=== PATIENT | female | born 1985 | race Caucasian/White ===

== ENCOUNTER 2021-07-03 09:52 | Outpatient (CLI) | payer OTHER, SELFPAY ==
[2021-07-03 12:41] LABS: Basophils Absolute Auto 0.1 K/mm3 (0.0-0.1); Eosinophils Absolute Auto 0.1 K/mm3 (0-0.3); Eosinophils Percent Auto 1.2 % (0-4.4); Hematocrit 38.2 % (37.0-47.0); Hemoglobin 12.5 g/dL (12.0-15.0); Immature Granulocyte Absolute 0.04 K/mm3 (0.00-0.031); Immature Granulocyte Percent A 0.5 % (0-0.5); Lymphocytes Absolute Auto 2.62 K/mm3 (0.9-3.2); Lymphocytes Percent Auto 31.8 % (18.3-44.2); Mean Corpuscular HGB Conc 32.7 g/dl (32-36); Mean Corpuscular Hemoglobin 28.9 pg (26-34); Mean Corpuscular Volume 88.4 fl (80-100); Mean Platelet Volume 9.5 fl (7.4-10.4); Monocytes Absolute Auto 0.5 K/mm3 (0.1-0.6); Monocytes Percent Auto 6.6 % (2.6-8.5); Neutrophils Absolute Auto 4.9 K/mm3 (1.3-6.7); Neutrophils Percent Auto 58.9 % (45.5-73.1); Platelet Count Result 360 k/mm3 (150-375); Red Blood Count 4.32 M/mm3 (4.2-5.4); White Blood Count 8.2 K/mm3 (4.5-10.0)
[2021-07-03 12:48] LABS: Alanine Aminotransferase 14 U/L (4-35); Albumin Level 4.4 g/dL (3.5-5.1); Alkaline Phosphatase 86 U/L (38-126); Anion Gap 9 mmol/L (8-16); Aspartate Amino Transferase 35 U/L (14-36); Bilirubin,Total 0.5 mg/dL (0.2-1.3); Blood Urea Nitrogen 10 mg/dL (7-17); Calcium 9.7 mg/dL (8.4-10.2); Carbon Dioxide 28 mmol/L (22-30); Chloride 102 mmol/L (98-107); Cholesterol 200 mg/dL (0-200); Estimated Glomerular Filt Rate > 60; Glucose 94 mg/dL (65-110); HDL Direct 44 mg/dL; Potassium 4.2 mmol/L (3.4-5.0); Sodium 139 mmol/L (137-145); Triglycerides 103 mg/dL (<150)
[2021-07-03 12:59] LABS: LDL Cholesterol Direct 124 mg/dL
[2021-07-03 13:05] LABS: Vitamin D 25 Hydroxy 21.8 ng/mL
== END 2021-07-03 09:53 | disposition home or self-care (01) ==
LOC: ANHWCLAB 09:56
PROVIDERS: Visit Provider Obstetrics & Gynecology
DX: F52.0 Hypoactive sexual desire disorder (principal)
CPT/HCPCS: 36415; 80053; 80061; 82306; 84443; 85025

== ENCOUNTER 2021-07-11 12:28 | Outpatient (CLI) | payer OTHER, SELFPAY ==
--- NOTE | ~2021-07-11 | US_ITS ---
EXAMINATION: US pelvic complete w TV EXAM DATE: 07/11/2021 13:03 INDICATION: R19.00 - Intra-abdominal and pelvic swelling, mass and mag... . TECHNIQUE: Pelvic transabdominal and transvaginal sonogram was performed. There are multiple graysca le and Doppler images available for interpretation. There is no prior study for comparison. FINDINGS: Uterus measures 9.0 x 4.8 x 4.5 cm, with a large fundal fibroid measuring 9 x 6 cm. Endome trial stripe measures 5 mm, within normal limits. There is no free pelvic fluid. Right adnexa: The ovary measures 2.1 x 1.9 x 1.9 cm and is morphologically normal. Ovarian vascular f low confirmed. Left adnexa: The ovary is not identified. There is no adnexal mass. IMPRESSION: 1. Large fibroid. Reviewed, dictated and finalized at location G. [employer] SALESPERSON IMPRESSION: 1. Large fibroid.
== END 2021-07-11 12:29 | disposition home or self-care (01) ==
LOC: ANHIMG 12:30
PROVIDERS: Visit Provider Obstetrics & Gynecology
DX: D25.9 Leiomyoma of uterus, unspecified (principal)
CPT/HCPCS: 76830; 76856

== ENCOUNTER 2021-08-17 08:28 | Outpatient (CLI) | payer OTHER, SELFPAY ==
--- NOTE | ~2021-08-17 | MR_ITS ---
EXAMINATION: MR pelvis wo/w con DATE: 08/17/2021 10:42 INDICATION: Benign neoplasm of connective and other soft tissue. TECHNIQUE: Magnetic resonance imaging (MRI) of the pelvis was performed without and with 16 mL MultiH ance intravenous contrast. Sequences included coronal and axial T2-weighted FS FSE, axial T1-weighted FS FSE, axial LAVA, coronal FS FIESTA, coronal LAVA-flex, axial T2-weighted FSE, axial dual-echo T1- weighted FSPGR, axial FS FIESTA, axial DWI, and small [id number] sagittal, coronal, and axial T2-w eighted FSE. Postcontrast sequences included coronal LAVA-flex and a time course of axial LAVA. COMPARISON: Pelvis ultrasound 07/11/2021 FINDINGS: The uterus is septate. The endometrial thickness is 9 mm. There is a 10.3 x 6.5 x 5.9 cm subserosal f ibroid of the right side of the uterine fundus. The right ovary is normal. There is a 2.7 cm dominant follicle in left ovary. There is physiologic fluid in the pelvis. There are no pathologically enlarg ed lymph nodes. IMPRESSION: 1. 10.3 cm subserosal fibroid of the right side of the uterine fundus. 2. Septate uterus. Reviewed, dictated and finalized at location [employer]. [employer]
[2021-08-17 09:51] LABS: Estimated Glomerular Filt Rate > 60
== END 2021-08-17 08:29 | disposition home or self-care (01) ==
LOC: ANHIMG 08:32
PROVIDERS: Visit Provider Obstetrics & Gynecology
DX: D25.9 Leiomyoma of uterus, unspecified (principal); Q51.28 Other and unspecified doubling of uterus
CPT/HCPCS: 72197; A9577

== ENCOUNTER 2022-01-10 08:46 | Emergency (ER) | payer OTHER, SELFPAY ==
--- NOTE | 2022-01-10 08:49 | ED.URI ---
HPI - URI/Sore Throat General Chief Complaint: Upper Respiratory Infection Stated Complaint: covid positive, wants to be tested for strep Time Seen by Provider: 01/10/22 08:49 Source: patient Mode of arrival: ambulatory Limitations: no limitations History of Present Illness HPI Narrative: Ms. Lackey is a 36-year-old female patient presenting to the clinic today with complaints of sore throat. She is positive for COVID but thinks she has strep. States that her symptoms started on Friday and she tested positive for COVID on Friday. Reports that her symptoms are low-grade fever, stuffy nose, congestion, as well as a sore throat. Reports that her sore throat is getting worse every day and she is having difficulty swallowing due to the pain. Related Data Allergies Allergy/AdvReac Type Severity Reaction Status Date / Time No Known Allergies Allergy Unverified 09/27/21 08:19 Review of Systems Review of Systems: Pertinent positives per HPI. Patient denies any fever, chills, rash, headache, visual changes, dizziness, shortness of breath, chest pain, palpitations, nausea, vomiting, diarrhea, constipation, abdominal pain, or any urinary issues. [facility] Past Medical History Medical History History of infertility Family History Family History Mother Hypertension Grandparent Family history of malignant neoplasm of breast, Onset Age: 45 Social History Social History Smoking status: Never smoker Alcohol intake: never Comments At the time of my signature, I reviewed and agree with the nursing past medical, surgical, social, and family history. There is no relevant family history pertinent to the patient complaint. Exam Narrative: General: Well-developed, obese, in no apparent distress Head: Normocephalic, atraumatic Eyes: Pupils equally round and reactive to light bilaterally, EOM intact, sclera and conjunctive clear, no discharge, lids normal Ears: TMs intact and dull, ear canals clear, no drainage, grossly hearing normal. Nose: Nares patent, clear nasal discharge, moderate inflammation, no sinus tenderness. Mouth: Oropharynx without lesions or masses, good dentition, MMM. Postnasal drip oropharynx mildly red Neck: Supple, trachea midline, no enlargement of anterior or posterior cervical nodes, no thyroid masses or goiter palpable. Cardio: Regular rate and rhythm, s1 and s2 normal, no murmur appreciated. Resp: Clear to auscultation bilaterally anteriorly and posteriorly, no rhonchi, rales, wheezing or rubs Course Course Emergency Course: Portions of this record may have been created with voice recognition software. Level of Care: Express Care Visit Vital Signs Vital signs: Vital signs reviewed MDM - URI/Sore Throat MDM Narrative Medical decision making narrative: At the time of visit patient is resting comfortably on the exam table. Strep screen negative in the clinic. I suspect that the patient has viral pharyngitis due to COVID. I will send her in a prescription for some viscous lidocaine and also put her on some antivirals as she is technically on day 4 of symptoms. Since today just started. Discharge Plan Discharge Clinical Impression: COVID-19, Acute pharyngitis Patient Disposition: Home, Self-Care Condition: Stable Instructions: Antibiotic Form, Pharyngitis (ED), How To Wash Your Hands (ED), Droplet Precautions (ED), COVID-19 (Coronavirus Disease 2019) (ED), Face Coverings (Masks) and COVID-19 (ED), How to Recover from COVID-19 at Home (ED) Additional Instructions: Take prescription medications only as prescribed- paxlovid and viscous lidocaine Increase fluids and stay well hydrated Tylenol/motrin for pain/fever Flonase and OTC antihistamines as directed Vicks vapor rub to open sinuses Sinus rins
[2022-01-10 08:55] VITALS: BP 131/95; PULSE 115; RESP 20; TEMP 37.6; O2SAT 100
== END 2022-01-10 09:30 | disposition home or self-care (01) ==
PROVIDERS: Emergency Provider Nurse Practitioner Family
DX: U07.1 COVID-19 (principal)
CPT/HCPCS: 87081; 87880; 99213; G0463

== ENCOUNTER 2022-08-30 08:13 | Outpatient (CLI) | payer BC, SELFPAY ==
[2022-09-05 04:48] LABS: FSH 17.4 mIU/mL (***); Prolactin 8.2 ng/mL (***)
[2022-09-08 22:16] LABS: Estradiol, Ultrasensitive 26 pg/mL
== END 2022-08-30 08:14 | disposition home or self-care (01) ==
LOC: ANHGOSHLAB 08:17
DX: R79.89 Other specified abnormal findings of blood chemistry (principal); Z31.41 Encounter for fertility testing
CPT/HCPCS: 36415; 82670; 83001; 84146

== ENCOUNTER 2022-09-24 10:46 | Outpatient (CLI) | payer BC, SELFPAY ==
[2022-09-28 05:41] LABS: FSH 17.5 mIU/mL (***)
[2022-09-30 23:11] LABS: Estriol <0.10 ng/mL
== END 2022-09-24 10:47 | disposition home or self-care (01) ==
DX: Z31.41 Encounter for fertility testing (principal)
CPT/HCPCS: 36415; 82677; 83001

== ENCOUNTER 2023-02-10 10:55 | Outpatient (CLI) | payer BC, SELFPAY ==
[2023-02-10 11:55] LABS: Alanine Aminotransferase 26 U/L (6-35); Albumin Level 4.3 g/dL (3.5-5.1); Alkaline Phosphatase 66 U/L (38-126); Anion Gap 6 mmol/L (8-16); Aspartate Amino Transferase 31 U/L (14-36); Bilirubin,Total 0.3 mg/dL (0.2-1.3); Blood Urea Nitrogen 11 mg/dL (7-17); Calcium 9.2 mg/dL (8.4-10.2); Carbon Dioxide 25 mmol/L (22-30); Chloride 103 mmol/L (98-107); Estimated Glomerular Filt Rate > 60; Glucose 92 mg/dL (65-110); Potassium 3.7 mmol/L (3.4-5.0); Sodium 134 mmol/L (137-145)
== END 2023-02-10 10:56 | disposition home or self-care (01) ==
LOC: ANHGOSHLAB 10:56
PROVIDERS: PCP Family Medicine; Visit Provider Physician Assistant Medical
DX: E78.2 Mixed hyperlipidemia (principal)
CPT/HCPCS: 36415; 80053

== ENCOUNTER 2024-02-02 10:06 | Outpatient (CLI) | payer BC, SELFPAY ==
[2024-02-02 14:43] LABS: Basophils Absolute Auto 0.1 K/mm3 (0.0-0.1); Basophils Percent Auto 0.8 % (0.2-1.2); Eosinophils Absolute Auto 0.1 K/mm3 (0-0.3); Eosinophils Percent Auto 1.7 % (0-4.4); Hemoglobin 11.9 g/dL (12.0-15.0); Immature Granulocyte Absolute 0.02 K/mm3 (0.00-0.031); Immature Granulocyte Percent A 0.3 % (0-0.5); Lymphocytes Absolute Auto 2.52 K/mm3 (0.9-3.2); Lymphocytes Percent Auto 41.7 % (18.3-44.2); Mean Corpuscular HGB Conc 31.3 g/dl (32-36); Mean Corpuscular Volume 86.2 fl (80-100); Monocytes Absolute Auto 0.3 K/mm3 (0.1-0.6); Monocytes Percent Auto 5.5 % (2.6-8.5); Platelet Count Result 411 k/mm3 (150-375); Red Blood Count 4.41 M/mm3 (4.2-5.4); Red Cell Distribution Width 14.1 % (11.5-14.5); White Blood Count 6.1 K/mm3 (4.5-10.0)
[2024-02-02 16:21] LABS: Alanine Aminotransferase 14 U/L (6-35); Albumin Level 4.5 g/dL (3.5-5.1); Alkaline Phosphatase 90 U/L (38-126); Anion Gap 11 mmol/L (4-12); Aspartate Amino Transferase 28 U/L (14-36); Bilirubin,Total 0.4 mg/dL (0.2-1.3); Blood Urea Nitrogen 11 mg/dL (7-17); Calcium 9.8 mg/dL (8.4-10.2); Carbon Dioxide 25 mmol/L (22-30); Chloride 102 mmol/L (98-107); Estimated Glomerular Filt Rate > 60; Glucose 75 mg/dL (65-110); Sodium 138 mmol/L (137-145)
[2024-02-02 16:50] LABS: Cholesterol 193 mg/dL (0-200); HDL Direct 39 mg/dL; Triglycerides 117 mg/dL (<150)
[2024-02-02 17:01] LABS: LDL Cholesterol Direct 114 mg/dL
== END 2024-02-02 10:07 | disposition home or self-care (01) ==
LOC: ANHGOSHLAB 10:08
PROVIDERS: Physician Assistant Medical; PCP Family Medicine; Visit Provider Student in an Organized Health Care Education/Training Program
DX: Z00.00 Encounter for general adult medical examination without abnormal findings (principal); E78.2 Mixed hyperlipidemia; R53.83 Other fatigue
CPT/HCPCS: 36415; 80053; 80061; 85025

== ENCOUNTER 2024-05-10 14:17 | Emergency (ER) | payer OTHER, BC, SELFPAY ==
[2024-05-10 14:30] VITALS: BP 115/81; PULSE 100; RESP 20; TEMP 36.7; O2SAT 99
--- NOTE | 2024-05-10 15:33 | ED_ITS ---
HPI - URI/Sore Throat General Chief Complaint: Upper Respiratory Infection Stated Complaint: Congestion/Cough/Body Aches/Fever Time Seen by Provider: 05/10/24 15:25 Source: patient, RN notes reviewed and old records reviewed Mode of arrival: ambulatory Limitations: no limitations History of Present Illness HPI Narrative: 38 year old female who presents to [facility] care with complaints of cough for one week.and since yesterday she has experienced body aches, chills,ear pain, nasal drainage, with fever up to 102F. Patient reports that 5 month old daughter is ill with rhinovirus. Patient reports that she has been taking Ibuprofen and Zinc for her symptoms. MD elicited complaint: cough and other (body aches, chills, fever,and ear aches.) Onset (ago): day(s) (day 2 of body aches fever, chills and ear pain, one week cough) Severity: moderate Pain scale (0-10): 4 Able to tolerate fluids by mouth: Yes Treatments prior to arrival: ibuprofen and other (Zinc) Related Data Allergies Allergy/AdvReac Type Severity Reaction Status Date / Time No Known Allergies Allergy Verified 05/10/24 14:53 Review of Systems Review of Systems: CONSTITUTIONAL: Reports malaise, chills, sweats, or fever. EYES: Denies visual changes, redness, or discharge. ENT: Reports rhinorrhea, congestion, no sinus pain, bilateral otalgia and no sore throat. CARDIOVASCULAR: Denies chest pain, palpitations, or edema. RESPIRATORY: Reports cough.? Denies dyspnea. GASTROINTESTINAL: Denies abdominal pain, nausea, vomiting, diarrhea SKIN: Denies rash or itching. MUSCULOSKELETAL:Reports myalgia. NEUROLOGIC: Denies headache. All systems reviewed & are unremarkable except as noted in HPI and below PMFSH Past Medical History Medical History History of infertility Migraine headache Surgical History Surgical History S/P myomectomy Family History Family History Mother Hypertension Grandparent Family history of malignant neoplasm of breast, Onset Age: 45 Social History Social History (Reviewed 05/11/24 @ 14:56 by MICHELLE Grimes Smoking status: Never smoker Second hand tobacco smoke exposure: No Alcohol intake: never Substance use: never Substance use type: does not use Lack of Transportation: No Lack of Food: Never True Current Housing: I Have Housing Concerned About Future Housing: No Difficulty Paying Gas/Electric Bills: No Difficulty Paying for Meds: No Currently Unemployed: No Education: Trade/Vocational Certificate Difficulty w/ Childcare or Family Care: No Living arrangements: with family Occupation/Education: occupation 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 Gender identity (if verbalized by the patient): Female Sexual Orientation (if Verbalized by the Patient): Straight or Heterosexual Spiritual care concerns: No Agree to blood products: Yes Comments At time of signature, agree with nursing past medical, surgical, social and family history. There is no relevant family history pertinent to the presenting complaint Exam Narrative: GENERAL: Well-appearing, well-nourished, and in no acute distress. HEAD: Normocephalic EYES: PERRLA, conjunctivae clear ENT: Nares clear, turbinates edematous and erythematous, clear discharge. Mucous membranes moist. TM pearly tavera with dull light reflex bilaterally; no tragal tenderness. Oropharynx erythematous without lesions. Tonsils not enlarged and without exudate, no drooling, no hoarseness, no trismus, uvula midline. NECK: Supple. No lymphadenopathy CHEST: Clear to auscultation, breath sounds equal. No wheezing, rhonchi, rales, or stridor. No respiratory distress, speaks in full sentences.cough noted, SAO2 99% on room air HEART: Regular rate and rhythm. No murmur heard. SKIN: Warm, dry, no rash. NEURO: Alert and oriented x3. PSYCH: Normal mood and affect Course Course Emergency Course: Patient is aware of diagnosis, understands and agrees to treatment plan.? Anticipatory guidance given.? Patient agrees to follow-up as directed and is aware of reasons to seek care at the emergency department. Portions of this record may have been created with voice recognition software Level of Care: Express Care Visit Vital Signs Vital signs: Vital Signs Temperature 36.7 C 05/10/24 14:30 Pulse Rate 100 05/10/24 14:30 Respiratory Rate 20 05/10/24 14:30 Blood Pressure 115/81 05/10/24 14:30 Pulse Oximetry 99 05/10/24 14:30 Oxygen Delivery Room Air 05/10/24 14:30 Temperature 36.7 C 05/10/24 14:30 Pulse Rate 100 05/10/24 14:30 Respiratory Rate 20 05/10/24 14:30 Blood Pressure 115/81 05/10/24 14:30 Pulse Oximetry 99 05/10/24 14:30 Oxygen Delivery Room Air 05/10/24 14:30 Reviewed MDM - URI/Sore Throat MDM Narrative Medical decision making narrative: Differential diagnosis considered: Jason virus, strep pharyngitis, allergic rhinitis, upper respiratory tract infection, sinusitis, rhinosinusitis, nasopharyngitis. viral pharyngitis, otitis media, otitis externa, pneumonia, bronchitis, viral cough syndrome, viral syndrome, and influenza.? Exam findings show no acute concerns or changes; patient is non-toxic appearing and is in no distress.? Patient is appropriate for outpatient treatment and follow-up. Differential Diagnosis Differential diagnosis: Likely upper respiratory infection, otitis media, sinusitis, viral infection, influenza, pharyngitis and other (COVID) Medical Records Attestation: I reviewed the patient's medical records. Lab Data Attestation: I reviewed the patient's lab results. Lab results narrative: strep screen negative, culture sent, Influenza A negative, Influenza B negative, COVID antigen positive Labs: Lab Results 05/10/24 Range/Units 15:00 POC Influenza A Ag Negative (Negative) POC Influenza B Ag Negative (Negative) POC SARS CoV-2 Ag Positive (Negative) POC Grp A Strep Screen Negative (Negative) Critical Care Time Critical Care Time Critical Care Time: No Discharge Plan Discharge Clinical Impression: COVID-19 Patient Disposition: Home, Self-Care Condition: Stable Instructions: Antibiotic Form, How to Recover from COVID-19 at Home (ED) Additional Instructions: Increase fluids especially juices and water Fcxz-fht-lfhtorn cough and cold medicine of your choice for your symptoms Zyrtec Claritin or Milli daily Tylenol or ibuprofen for any fevers or pain heat to the face 20-30 minutes 4-6 times a day for pain Salt water gargles, throat lozenges or throat sprays as desired Must quarantine COVID-19 DISCHARGE The following recommendations have been made by the CDC and local Health Departments, regarding COVID-19: Those individuals with mild cases of COVID-19 can generally be discontinued from isolation, 5 days AFTER the onset of symptoms AND the resolution of fever for 24hrs (without the use of fever-reducing medications) Those individuals who were asymptomatic, and tested positive, are discontinued from isolation 10 days AFTER their first positive COVID-19 test Those individuals with SEVERE to CRITICAL illness or immunocompromised diseases may require up to 20 days of home isolation or hospitalization Majority of mild to moderate cases can be treated at home, without hospitalization or prescription medications You do not need a negative test result to return to work/school, assuming the above recommendations have been met and you are not symptomatic. At this time, return to work/school notes will not be provided. Guidelines from the local Health Department, CDC, and workplace are expected to be followed. All individuals in the household need to remained quarantined for up to 14 days if asymptomatic OR 10 days after the start of symptoms. Everyone in the home DOES NOT require testing, they are presumed positive and should quarantine as directed. Treating symptoms for mild to moderate cases may include: Tylenol, Flonase/nasal spray, OTC cold/flu medications recommended from your provider or any necessary prescription medications provided at your visit or from your PCP IF YOU TESTED NEGATIVE If you are symptomatic with reason to believe you have COVID-19, there is a high possibility your rapid test may not have detected the virus. Rapid testing is dependent on timing and viral load and may have a false- negative reading You should follow appropriate guidelines regarding quarantine, hand washing, m ask wearing, and social distancing You may be sent for PCR testing as an outpatient to the [facility] site Common Adult Symptoms: Fever/chills Cough Shortness of breath Fatigue, muscle aches Headache Loss of taste/smell Sore throat, congestion, runny nose GI symptoms (nausea, vomiting, diarrhea) Common Pediatric Symptoms Cough Fever GI symptoms (diarrhea, upset stomach, nausea, vomiting) Symptoms may differ in severity however, most cases do not require hospitalization. WHEN TO SEEK ER EVALUATION/TREATMENT Severe/persistent shortness of breath or difficulty breathing Elevated, persistent fevers without resolution with fever-reducing medications Chest pain Extreme fatigue/lethargy Complications of pre-existing disease Prescriptions: No Action sumatriptan succinate 50 mg tablet 50 mg PO .COMPLEX Qty: 9 5RF Rx Instructions: 50 mg orally; take 1 tab at onset of headache; if no relief may repeat 1 tab after at least 2 hrs; max = 4 tabs/24 hr Follow-up/Referrals: Ameena Bruce MD [Primary Care Provider] - Time of Disposition: 15:47 Quality Khurram Coma Scale Eyes: Open Verbal: Oriented and Alert Motor: Follows Commands Gerlaw Coma Total Score: 15
[2024-05-10 16:10] LABS: EDSTREPNEGPOS1 Negative (Negative)
[2024-05-10 16:12] LABS: EDCOVIDSCREEN Positive (Negative); EDINFLUASCREEN Negative (Negative); EDINFLUBSCREEN Negative (Negative)
== END 2024-05-10 15:50 | disposition home or self-care (01) ==
PROVIDERS: Emergency Provider Registered Nurse; PCP Family Medicine
DX: U07.1 COVID-19 (principal)
CPT/HCPCS: 87081; 87426; 87804; 87880; 99213; G0463

== ENCOUNTER 2024-12-29 08:47 | Outpatient (CLI) | payer OTHER, BC, SELFPAY ==
--- OUTSIDE RECORDS SUMMARY | 2024-12-29 08:55 | XMS_ITS | Clinical Summary ---
Author Organization [facility] [employer] Address [address] [place] [address] Care Team Providers Care Team Psychologist Name Role Phone Ulises Lake MD Primary Care Provider [phone] Source Comments [facility] [employer],non-owned Affiliates and Associated Physician Practices is amultiple site organization consisting of ambulatory clinics and hospital sitesin [place], [place], [place] and [place]. This disclosure is being madepursuant to the Care Everywhere program and may not contain all information available regarding this patient. Last updated 18.[employer] [facility] Allergies No known active allergies Medications * Be aware that medications may not be up to date on this document. Alwaysverify current medications with the patient. No known medications Social History Tobacco Use Types Packs/Day Years Used Date Smoking Tobacco: Never Smokeless Tobacco: Never Comments No Sex and Gender Information Value Date Recorded Sex Assigned at Not on file Legal Sex Female 7:16 AM MINI SHIFTER Gender Identity Not on file Sexual Orientation Not on file Last Filed Vital Signs Vital Sign Reading Time Taken Comments Blood Pressure 124/80 08/26/2019 2:57 PM MINI SHIFTER Pulse 94 08/26/2019 2:57 PM MINI SHIFTER Temperature 36.9 C (98.5 F) 08/26/2019 2:57 PM MINI SHIFTER Respiratory Rate 16 08/26/2019 2:57 PM MINI SHIFTER Oxygen Saturation 98% 08/26/2019 2:57 PM MINI SHIFTER Inhaled Oxygen Concentration - - Weight 83.9 kg (185 lb) 08/26/2019 2:57 PM MINI SHIFTER Height 154.9 cm (5' 1) 08/26/2019 2:57 PM MINI SHIFTER Body Mass Index 34.96 08/26/2019 2:57 PM MINI SHIFTER Plan of Treatment Health Maintenance Due Date Last Done Comments HIV SCREENING 10/27/2002 HEPATITIS C SCREENING 10/23/2005 DTAP/TDAP/TD VACCINES (1 - Tdap) 10/27/2006 HEPATITIS B VACCINE (1 of 3 - 19+ 3-dose series) 10/27/2006 COVID-19 VACCINE (1 - 2023-2 5 season) 2024 DEPRESSION SCREENING 06/23/2024 INFLUENZA VACCINE (#1) 2025 ZOSTER VACCINE (1 of 2) 10/27/2037 HIB VACCINE Aged Out No longer eligi ble based on patient's age to complete this topic HPV VACCINE Aged Out No longer eligi ble based on patient's age to complete this topic MENINGOCOCCAL (Group B) VACC INE SHARED DECISION-MAKING Aged Out No longer eligibl e based on patient's age to complete this topic MENINGOCOCCAL GROUPS A/C/Y/W VACCINE Aged Out No longer eligible b ased on patient's age to complete this topic PNEUMOCOCCAL VACCINE Aged Out No long er eligible based on patient's age to complete this topic Insurance * Guarantor: Cher Lackey Account Type Relation to Patient Date of Phone Billing Address Personal/Family Self 1985 [address] [place] [address] [facility] Care Teams Team Psychologist Relationship Specialty Start Date End Date Ulises Lake MD [address] [place] [address] PCP - General Family Medicine 08/26/19
--- OUTSIDE RECORDS SUMMARY | 2024-12-29 08:55 | XMS_ITS | Clinical Summary ---
Author Organization [facility] Address [address] [place] [address] Care Team Providers Care Recruiting Administrator Name Role Phone No, Physician Primary Care Provider [phone] Allergies No known active allergies Medications SUMAtriptan (IMITREX) 25 mg tablet Take 2 tablets (50 mg total) by mouth once as needed for migraine 3 Active ibuprofen (ADVIL,MOTRIN) 600 mg tablet Take 1 tablet (600 mg total) by mouth every 6 (six) hours 30 tablet 3 Active Additional Information Patient not taking.Reported on 04/15/2023 acetaminophen (TYLENOL) 500 mg tablet Take 2 tablets (1,000 mg total) by mouth every 6 (six) hours 42 tablet 3 Active Additional Information Patient not taking.Reported on 04/15/2023 polyethylene glycol (MIRALAX) 17 gram/dose bulk powder Take 17 g by mouth 2 (two) times a day for 7 days 238 g 3 Active oxyCODONE (ROXICODONE) 5 mg immediate release tabletIndicatio ns:Pain Take 1 tablet (5 mg total) by mouth every 4 (four) hours as needed for pain 15 tablet 3 Active Additional Information Patient not taking.Reported on 04/15/2023 Active Problems Problem Noted Date Diagnosed Date Encounter for other procreative management 11/09 Abnormal uterine bleeding (AUB) 01/14/2023 Fibroids 01/14/2023 Iron deficiency anemia due to chronic blood loss 01/14/2023 Uterine septum 10/03/2022 Medical History Medical History Date Comments Ovarian cyst Family History Medical History Relation Name Comments Thyroid disease Sister Anesthesia problems Neg Hx Relation Name Status Comments Sister Social History Tobacco Use Types Packs/Day Years Used Date Smoking Tobacco: Never Smokeless Tobacco: Never AUDIT-C Answer Date Recorded Q1: How often do you have a drink containing alcohol? Never 03/21/2023 Q2: How many drinks containi ng alcohol do you have on a typical day when you are drinking? Patient does not drink Q3: How often do you have si x or more drinks on one occasion? Never 03/21/2023 Personal Safety Answer Date Recorded Have you ever been in or are you currently in a harmful physical or emotional relationship or is someone making you feel afraid or unsafe? 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 Gender Identity Not on file Sexual Orientation Not on file Obstetrics History Para Term AB IAB SAB Ectopic Multiple Livin g Live Births 0 0 0 0 0 0 0 0 0 0 0 Last Filed Vital Signs Vital Sign Reading Time Taken Comments Blood Pressure 117/77 04/15/2023 8:10 AM CDT Pulse 105 03/21/2023 7:00 PM CDT Temperature 37.6 C (99.7 F) 03/21/2023 7:00 PM CDT Respiratory Rate 16 03/21/2023 7:00 PM CDT Oxygen Saturation 98% 03/21/2023 7:00 PM CDT Inhaled Oxygen Concentration - - Weight 87 kg (191 lb 12.8 oz) 04/15/2023 8:10 AM CDT Height 157.5 cm (5' 2.01) 04/15/2023 8:10 AM CD T Body Mass Index 35.07 04/15/2023 8:10 AM CDT Plan of Treatment Health Maintenance Due Date Last Done Comments Cervical Cancer Screening 1985 Depression Screening 1985 Varicella Vaccines (1 of 2 - 13+ 2-dose series) 10/27/2000 Regular Well Visit/Exam 18-64 10/27/2005 Covid-19 Vaccine ( season) 2024 04/06/2021, 08/18/2020, 07/26/2020 Influenza Vaccine (Season Ended) 2025 DTaP/Tdap/Td Vaccine (7 - Td or Tdap) 11/07/2025 11/08/2015, 01/11/1992, 08/15/1990, Additional history exists Hepatitis B Screening Completed 02/04/2016 Hepatitis C Screening Completed 11/10/2023 HPV Vaccines Aged Out No longer eligi ble based on patient's age to complete this topic Pneumococcal vaccine <65 Aged Out No longer eligible based on patient's age to complete this topic Procedures Procedure Name Priority Date/Time Associated Diagnosis Comments HEPATITIS C ANTIBODY Routine 11/10/2023 1:46 PM CDT Screening for viral disease from Last 3 Months or Most Recently Relevant to Health Maintenance Results * Hepatitis C antibody Blood (11/10/2023 1:46 PM CDT) Hep C Ab Nonreactive Nonreactive Comment:Antibodies to HCV no t detected. Does NOT exclude the possibility of recent exposure to HCV. Current interpretive data was last revised on 22 Blood 11/10/2023 1:46 PM CDT 11/10/2023 6:35 PM CDT us Nicol Johnson MD LAB MICROBIOLOGY - GENERAL OR DERABLES Final Result [facility] Department [place] [address] from Last 3 Months or Most Recently Relevant to Health Maintenance Insurance [facility] Care Teams Recruiting Administrator Relationship Specialty Start Date End Date No, Physician PCP - General 07/29/22
--- OUTSIDE RECORDS SUMMARY | 2024-12-29 08:55 | XMS_ITS | Referral Summary ---
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 [place] [address] from Last 3 Months or Most Recently Relevant to Health Maintenance [place] Care Teams Consolidator Relationship Specialty Start Date End Date No, Physician PCP - General 07/29/22
[2024-12-29 19:26] LABS: Hematocrit 40.1 % (37.0-47.0); Hemoglobin 12.0 g/dL (12.0-15.0); Immature Granulocyte Percent A 0.5 % (0-0.5); Lymphocytes Absolute Auto 2.85 K/mm3 (0.9-3.2); Mean Corpuscular HGB Conc 29.9 g/dl (32-36); Mean Corpuscular Hemoglobin 26.5 pg (26-34); Mean Corpuscular Volume 88.7 fl (80-100); Nucleated Red Blood Cells Absolute Auto 0.000 K/mm3 (0.0-0.012); Nucleated Red Blood Cells Perc 0.0 % (0.0-0.2); Platelet Count Result 417 k/mm3 (150-375); Red Blood Count 4.52 M/mm3 (4.2-5.4); White Blood Count 9.2 K/mm3 (4.5-10.0)
[2024-12-29 20:20] LABS: Add Urine Microscopic? YES; Appearance Urine Cloudy (Clear); Glucose Urine UA Negative (Negative); Leukocyte Esterase Ur Negative LEU/UL (Negative); Nitrate Urine Negative (Negative); Non Pathogenic Casts 0-2; Specific Grav Ur 1.014 (1.001-1.035)
[2024-12-29 21:32] LABS: Iron 78 ug/dL (37-170)
[2024-12-29 21:53] LABS: Percent Iron Saturation 18 % (20-50)
[2024-12-29 22:19] LABS: Ferritin 7.80 ng/mL (6.24-137)
== END 2024-12-29 08:48 | disposition home or self-care (01) ==
LOC: ANHBWCLAB 08:51
PROVIDERS: Student in an Organized Health Care Education/Training Program; PCP Family Medicine; Visit Provider Obstetrics & Gynecology
DX: D21.9 Benign neoplasm of connective and other soft tissue, unspecified (principal); N92.0 Excessive and frequent menstruation with regular cycle; R39.15 Urgency of urination
CPT/HCPCS: 36415; 81001; 82728; 83540; 83550; 85025